=== PATIENT | female | born 1950 | race Caucasian/White ===

== ENCOUNTER 2016-12-28 18:43 | Inpatient (IN) | payer MEDICARE, OTHER ==
[~2016-12-28] VITALS: Ht 157.5 cm; Wt 75.8 kg
[~2016-12-28 18:43] MED LIST: BISO1TAB44 PO; CALC500T30 PO; ENAL5TAB PO; LINA5TAB4 PO; METF500T4 PO; MULT-245 PO; NIAC500T PO; OMEG500C PO; SIMV10TA3 PO; TRADJENTA; TRIA15CR3 TP; enalapril; hydrochlorothiazide; metformin; niacin; simvastatin
--- NOTE | 2016-12-28 19:02 | PHYS DOC ---
Past Medical History Past Medical History: Diabetes-Type II, Hypertension, Unknown Past Surgical History: Tubal ligation, Other Alcohol Use: None Drug Use: None Adult General Chief Complaint Chief Complaint: NEAR SYNCOPE HPI HPI Patient is a 66 year old female who presents with generalized weakness and a fever. She states she actually fell at home and couldn't get up and had EMS come in get her up. She states she's had a cough for the last several days but denies any fevers chills nausea or vomiting. She denies any injury from her fall she denies a headache, neck stiffness, abdominal pain or back pain. Review of Systems Review of Systems Constitutional: Denies fever or chills [] Eyes: Denies change in visual acuity, redness, or eye pain [] HENT: Denies nasal congestion or sore throat [] Respiratory: Denies cough or shortness of breath [] Cardiovascular: No additional information not addressed in HPI [] GI: Denies abdominal pain, nausea, vomiting, bloody stools or diarrhea [] : Denies dysuria or hematuria [] Musculoskeletal: Denies back pain or joint pain [] Integument: Denies rash or skin lesions [] Neurologic: Denies headache, focal weakness or sensory changes [] Endocrine: Denies polyuria or polydipsia [] Current Medications Current Medications Current Medications Medications (Trade) Dose Ordered Sig/Zoë Start Time Stop Time Status Last Admin Dose Admin Acetaminophen (Tylenol) 1,000 mg 1X ONCE 12/28/16 20:30 12/28/16 20:31 DC 12/28/16 21:02 1,000 MG Azithromycin 250 ml @ 250 mls/hr 1X ONCE 12/28/16 21:30 12/28/16 22:29 Ceftriaxone Sodium 50 ml @ 100 mls/hr 1X ONCE 12/28/16 21:30 12/28/16 21:59 12/28/16 21:21 100 MLS/HR Ondansetron HCl (Zofran) 4 mg PRN Q8HRS PRN 12/28/16 21:30 12/29/16 21:29 Sodium Chloride 1,000 ml @ 1,000 mls/hr 1X ONCE 12/28/16 21:15 12/28/16 22:14 Allergies Allergies Allergies Coded Allergies Type Severity Reaction Last Updated Verified No Known Drug Allergies 02/16/16 No Physical Exam Physical Exam Constitutional: Well developed, well nourished, no acute distress, non-toxic appearance. [] HENT: Normocephalic, atraumatic, bilateral external ears normal, oropharynx moist, no oral exudates, nose normal. [] Eyes: PERRLA, EOMI, conjunctiva normal, no discharge. [] Neck: Normal range of motion, no tenderness, supple, no stridor. [] Cardiovascular:Heart rate regular rhythm, no murmur [] Lungs & Thorax: Bilateral breath sounds clear to auscultation [] Abdomen: Bowel sounds normal, soft, no tenderness, no masses, no pulsatile masses. [] Skin: Warm, dry, no erythema, no rash. [] Back: No tenderness, no CVA tenderness. [] Extremities: No tenderness, no cyanosis, no clubbing, ROM intact, no edema. [] Neurologic: Alert and oriented X 3, normal motor function, normal sensory function, no focal deficits noted. [] Psychologic: Affect normal, judgement normal, mood normal. [] Current Patient Data Vital Signs Vital Signs Date Time Temp Pulse Resp B/P (MAP) Pulse Ox O2 Delivery O2 Flow Rate FiO2 12/28/16 20:55 100.1 106 20 125/70 (88) 94 Nasal Cannula 2.0 100.1 Lab Values Laboratory Tests Test 12/28/16 19:05 12/28/16 19:07 12/28/16 19:38 12/28/16 20:50 White Blood Count 13.0 x10^3/uL (4.0-11.0) H Red Blood Count 4.99 x10^6/uL (3.50-5.40) Hemoglobin 14.4 g/dL (12.0-15.5) Hematocrit 43.6 % (36.0-47.0) Mean Corpuscular Volume 87 fL (79-100) Mean Corpuscular Hemoglobin 29 pg (25-35) Mean Corpuscular Hemoglobin Concent 33 g/dL (31-37) Red Cell Distribution Width 14.3 % (11.5-14.5) Platelet Count 215 x10^3/uL (140-400) Neutrophils (%) (Auto) 81 % (31-73) H Lymphocytes (%) (Auto) 11 % (24-48) L Monocytes (%) (Auto) 7 % (0-9) Eosinophils (%) (Auto) 0 % (0-3) Basophils (%) (Auto) 1 % (0-3) Neutrophils # (Auto) 10.6 x10^3uL (1.8-7.7) H Lymphocytes # (Auto) 1.4 x10^3/uL (1.0-4.8) Monocytes # (Auto) 0.9 x10^3/uL (0.0-1.1) Eosinophils # (Auto) 0.0 x10^3/uL (0.0-0.7) Basophils # (Auto) 0.1 x10^3/uL (0.0-0.2) Prothrombin Time 13.7 SEC (11.7-14.0) Prothrombin Time INR 1.1 (0.8-1.1) PTT 31 SEC (24-38) Sodium Level 135 mmol/L (136-145) L Potassium Level 3.8 mmol/L (3.5-5.1) Chloride Level 98 mmol/L (98-107) Carbon Dioxide Level 24 mmol/L (21-32) Anion Gap 13 (6-14) Blood Urea Nitrogen 10 mg/dL (7-20) Creatinine 1.0 mg/dL (0.6-1.0) Estimated GFR (Cockcroft-Gault) 55.6 Glucose Level 189 mg/dL (70-99) H Lactic Acid Level 2.6 mmol/L (0.4-2.0) H Calcium Level 9.7 mg/dL (8.5-10.1) Total Bilirubin 0.6 mg/dL (0.2-1.0) Direct Bilirubin 0.1 mg/dL (0.0-0.2) Aspartate Amino Transferase (AST) 27 U/L (15-37) Alanine Aminotransferase (ALT) 45 U/L (14-59) Alkaline Phosphatase 70 U/L (46-116) Total Protein 8.2 g/dL (6.4-8.2) Albumin 3.9 g/dL (3.4-5.0) Creatine Kinase 67 U/L (26-192) Creatine Kinase MB (Mass) < 0.5 ng/mL (0.0-3.6) Creatine Kinase MB Relative Index % (0-4) Troponin I Quantitative < 0.017 ng/mL (0.000-0.055) Influenza Type A Antigen Negative (NEGATIVE) Influenza Type B Antigen Negative (NEGATIVE) Urine Collection Type U cath Urine Color Yellow Urine Clarity Clear Urine pH 6.0 Urine Specific [place] 1.025 Urine Protein Negative mg/dL (NEG-TRACE) Urine Glucose (UA) Negative mg/dL (NEG) Urine Ketones (Stick) >=80 mg/dL (NEG) Urine Blood Negative (NEG) Urine Nitrite Negative (NEG) Urine Bilirubin Negative (NEG) Urine Urobilinogen Dipstick 0.2 mg/dL (0.2 mg/dL) Urine Leukocyte Esterase Negative (NEG) Urine RBC 0 /HPF (0-2) Urine WBC Occ /HPF (0-4) Urine Squamous Epithelial Cells Few /LPF Urine Bacteria Few /HPF (0-FEW) Urine Hyaline Casts Moderate /HPF Urine Mucus Mod /LPF Laboratory Tests 12/28/16 19:05 Laboratory Tests 12/28/16 19:05 EKG EKG EKG shows sinus tachycardia [address] elevations, T-wave inversions noted in V1 through V3, aVL, ST depressions noted in leads V2 V3 V4, normal axis, QTC 426, as interpreted by me. Radiology/Procedures Radiology/Procedures Two-view chest x-ray does not show any areas of consolidation, bony or denies, pneumothorax, as interpreted by me. Impressions: Fever Elevated lactic acid Productive cough Course & Med Decision Making Course & Med Decision Making Pertinent Labs and Imaging studies reviewed. (See chart for details) She presents with fever 102 she received Tylenol is now down to more normal rate. Her heart rate was also elevated, she received 1 L of second liters been ordered. She is requiring 2 L of oxygen now. She does have a productive cough and I don't have any other source of infection therefore will start Rocephin and azithromycin and admit. There is a chance that she is dehydrated since she has greater than 80 ketones in her chest x-ray might show an infiltrate tomorrow. Patient is agreeable plans in stable condition this time being admitted to Dr.Koduri Chavez Disclaimer Kathy Disclaimer This electronic medical record was generated, in whole or in part, using a voice recognition dictation system. Departure Departure Impression: Primary Impression: Fever Disposition: ADMITTED INPATIENT Admitting Physician: Lee Lara Condition: STABLE Referrals: FARRAH BENITO (PCP) Problem Qualifiers Primary Impression: Fever Fever type: unspecified Qualified Codes: R50.9 - Fever, unspecified ELI HOLLINGSWORTH MD Dec 28, 2016 19:02
[2016-12-28] MEDS ORDERED: IV NORMAL SALINE 1000ML BAG 1,000 ML IV SCH (19:30)
[2016-12-28 19:42] LABS: BASO # 0.1 x10^3/uL (0.0-0.2); BASO % 1 % (0-3); EOS % 0 % (0-3); HEMATOCRIT 43.6 % (36.0-47.0); HEMOGLOBIN 14.4 g/dL (12.0-15.5); LYMPH # 1.4 x10^3/uL (1.0-4.8); LYMPH % 11 % (24-48); MEAN CORPUSCULAR HEMOGLOBIN 29 pg (25-35); MEAN CORPUSCULAR HGB CONC 33 g/dL (31-37); MEAN CORPUSCULAR VOLUME 87 fL (79-100); MONO % 7 % (0-9); NEUT % 81 % (31-73); PLATELET COUNT 215 x10^3/uL (140-400); RED BLOOD COUNT 4.99 x10^6/uL (3.50-5.40); RED CELL DISTRIBUTION WIDTH 14.3 % (11.5-14.5)
[2016-12-28 19:51] LABS: INR 1.1 (0.8-1.1); PROTHROMBIN TIME PATIENT 13.7 SEC (11.7-14.0)
[2016-12-28 19:59] LABS: CALCIUM 9.7 mg/dL (8.5-10.1); GFR 55.6; POTASSIUM 3.8 mmol/L (3.5-5.1)
[2016-12-28 20:04] LABS: ALBUMIN 3.9 g/dL (3.4-5.0); DIRECT BILIRUBIN 0.1 mg/dL (0.0-0.2); TOTAL BILIRUBIN 0.6 mg/dL (0.2-1.0); TOTAL PROTEIN 8.2 g/dL (6.4-8.2)
[2016-12-28] MEDS ORDERED: IV NORMAL SALINE 1000ML BAG 1,000 ML IV ONE ×2 (20:15→21:15)
[2016-12-28 20:22] LABS: OBC FLU VALID
[2016-12-28] MEDS ORDERED: ACETAMINOPHEN 500 MG TABLET PO ONE (20:30)
[2016-12-28 21:01] LABS: CKMB MASS < 0.5 ng/mL (0.0-3.6); CREATINE KINASE 67 U/L (26-192)
[2016-12-28 21:04] LABS: BILIRUBIN,URINE NEGATIVE (NEG); GLUCOSE,URINE NEGATIVE (NEG); NITRITE,URINE NEGATIVE (NEG); PROTEIN,URINE NEGATIVE (NEG-TRACE); UROBILINOGEN,URINE 0.2 mg/dL (0.2 mg/dL)
[2016-12-28 21:12] LABS: BACTERIA,URINE FEW /HPF (0-FEW); RBC,URINE 0 /HPF (0-2); SQUAMOUS EPITHELIAL CELL,UR FEW /LPF; WBC,URINE OCC /HPF (0-4)
[2016-12-28] MEDS ORDERED: AZITHRMYCN 500MG IVPB FOR OMNI 250 ML IV ONE (21:30)
[2016-12-28] MEDS ORDERED: ONDANSETRON PF 4 MG/2 ML VIAL. IV PRN (21:30)
[2016-12-28 23:40] VITALS: BP 148/68
[2016-12-29] MEDS: guaiFENesin/CODEINE 100mg/10mg 5 ML LIQUID PO PRN ×3 (00:51→20:52)
[2016-12-29 02:50] VITALS: BP 104/52
[2016-12-29 03:43] LABS: BASO % 1 % (0-3); EOS % 0 % (0-3); HEMATOCRIT 37.1 % (36.0-47.0); HEMOGLOBIN 12.3 g/dL (12.0-15.5); LYMPH # 2.1 x10^3/uL (1.0-4.8); LYMPH % 22 % (24-48); MEAN CORPUSCULAR HEMOGLOBIN 29 pg (25-35); MEAN CORPUSCULAR HGB CONC 33 g/dL (31-37); MEAN CORPUSCULAR VOLUME 87 fL (79-100); MONO % 9 % (0-9); NEUT % 69 % (31-73); PLATELET COUNT 179 x10^3/uL (140-400); RED BLOOD COUNT 4.25 x10^6/uL (3.50-5.40); RED CELL DISTRIBUTION WIDTH 14.2 % (11.5-14.5); WHITE BLOOD COUNT 9.4 x10^3/uL (4.0-11.0)
[2016-12-29 04:09] LABS: ALBUMIN 3.1 g/dL (3.4-5.0); CALCIUM 8.2 mg/dL (8.5-10.1); CREATININE 0.8 mg/dL (0.6-1.0); POTASSIUM 3.8 mmol/L (3.5-5.1); TOTAL BILIRUBIN 0.3 mg/dL (0.2-1.0); TOTAL PROTEIN 6.3 g/dL (6.4-8.2)
--- NOTE | 2016-12-29 06:31 | EKG ---
[facility] [address] [place] [address] Test Date: 2016-12-28 Test Time: 18:44:00 Pat Name: MEERA LONDONO Department: Room: [facility] Gender: F Negative Retoucher: : 1950 Requested By: ELI HOLLINGSWORTH Order Number: [id number] Reading MD: Demetrius Nascimento Measurements Intervals Ridge Rate: 102 P: 18 PA: 154 QRS: 15 QRSD: 76 T: 51 QT: 324 QTc: 426 Interpretive Statements SINUS TACHYCARDIA LOW LIMB LEAD VOLTAGE NON SPECIFIC T ABNORMALITY NON SPECIFIC ST DEPRESSION RI6.01 Unconfirmed report No previous ECG available for comparison Electronically Signed On 01-07-2017 12:46:34 CDT by Demetrius Nascimento
[2016-12-29 07:00] VITALS: BP 137/74
--- NOTE | 2016-12-29 08:36 | RAD ---
EXAM: Chest, single view. HISTORY: Fever. COMPARISON: None. FINDINGS: A frontal view of the chest is obtained. There is no infiltrate, effusion or pneumothorax. The heart is normal in size. IMPRESSION: No acute pulmonary finding.
[2016-12-29] MEDS ORDERED: DEXTROSE 50% 25 GM / 50ML DISP.SYRIN. IV PRN (08:45)
[2016-12-29] MEDS: TRIAMCINOLONE ACETONIDE 0.1% TOPICAL CREAM 15GM TUBE. TP SCH (09:00)
[2016-12-29] MEDS ORDERED: LINAGLIPTIN 5 MG TABLET PO SCH (09:00)
--- NOTE | 2016-12-29 10:06 | PDOC ---
Provider Note Provider Note Pt seen.H&P dictated. ##[id number] FORTUNATO OH MD Dec 29, 2016 10:06
[2016-12-29] MEDS ORDERED: ASPI325T8 PO (10:14)
[2016-12-29] MEDS: MULTIVITAMIN with MINERAL TABLET. PO SCH (10:22)
[2016-12-29] MEDS: CALCIUM CARBONATE 500 MG TABLET PO SCH (10:22)
[2016-12-29] MEDS: OMEGA-3 FATTY ACIDS/FISH OIL 1,000 MG CAPSULE. PO SCH (10:23)
[2016-12-29] MEDS: metFORMIN 500 MG TABLET PO SCH ×2 (10:23→17:10)
[2016-12-29] MEDS: hydroCHLOROthiazide 25 MG TABLET PO SCH (10:23)
[2016-12-29] MEDS: ATENOLOL 50 MG TABLET. PO SCH (10:25)
[2016-12-29] MEDS: LISINOPRIL 5 MG TABLET. PO SCH (10:25)
[2016-12-29] MEDS: ENOXAPARIN 40 MG/0.4 ML SYRINGE. SQ SCH (10:34)
[2016-12-29 11:00] VITALS: BP 129/65
[2016-12-29] MEDS: guaiFENesin DM 600/30MG 1 TAB TAB.ER.12H PO SCH ×2 (11:01→20:54)
[2016-12-29] MEDS: INSULIN ASPART 300 UNITS/3 ML INSULN.PEN SQ SCH ×2 (11:40→17:00)
[2016-12-29] MEDS ORDERED: ACETAMINOPHEN 500 MG TABLET PO PRN (12:15)
[2016-12-29] MEDS: BENZONATATE 100 MG CAPSULE. PO SCH ×2 (13:35→20:52)
--- NOTE | 2016-12-29 14:18 | HP ---
ADMIT DATE: 12/29/2016 ATTENDING PHYSICIAN: Dr. Oh. PRIMARY CARE PHYSICIAN: Dr. Peralta. REASON FOR ADMISSION TO THE HOSPITAL: Weakness, fever and fell at home. HISTORY OF PRESENT ILLNESS: The patient is a 66-year-old female, patient of Dr. Peralta. She has a history of intellectually impaired. She is in a alf and says she has been having cough and not feeling well. She has fever and she was feeling dizzy, lightheaded and fell yesterday at the facility. Was brought to the hospital. She had a fever of 101, white count 13,000 and chest x-ray was negative, was treated with antibiotics. Influenza A and B was negative. PAST MEDICAL HISTORY: She is a diabetic. She takes metformin. Denies heart problems or lung problems. PAST SURGICAL HISTORY: She denies any major surgeries. ALLERGIES: No known allergies. MEDICATIONS AT HOME: Takes Ziac 2.5/6.25 daily, calcium twice a day, enalapril 5 mg daily, metformin 500 mg twice a day, vitamin daily, niacin 500 mg daily, omega fish oil daily, simvastatin daily, triamcinolone cream daily. FAMILY HISTORY: Unremarkable. SOCIAL HISTORY: She lives in a alf. REVIEW OF SYSTEMS: CARDIAC: No chest pain. LUNGS: Has some occasional wheezing and fever. Rest of the 14 systems was reviewed and negative. PHYSICAL EXAMINATION: VITAL SIGNS: The patient has fever of 102.7, pulse 113, respirations 20, blood pressure 167/68, 94% room air. HEENT: Head is atraumatic. Pupils equal. Has congestion in the nose as well as posterior pharynx. LUNGS: Occasional wheezing. CARDIOVASCULAR: S1, S2. ABDOMEN: Soft. No mass palpable. EXTERNAL GENITALIA: No Alas. RECTAL: Deferred. EXTREMITIES: No calf tenderness, no edema. LABORATORY DATA: Shows a white count of 13,000, hemoglobin 14, platelets 215. Electrolytes show sodium 140, potassium 3.8, chloride 105, bicarbonate 29, BUN 24, creatinine 0.8. Lactic acid was a little bit high at 2.6. LFTs were normal. Troponin was negative. Urine was negative for infection. Influenza A and B was negative. Chest x-ray, no acute findings and EKG done, report is not available. FINAL IMPRESSION: 1. Fever. 2. Possible acute bacterial sinusitis. 3. Diabetes. 4. Hypertension. 5. Hyperlipidemia. PLAN: At this time, was admitted to the hospital, IV antibiotics, IV fluids and the patient's white count is down, feeling better, will be able to be discharged in 1-2 days. [place] OH MD DR: KIRSTEN/junior JOB#: [id number] / [id number] FARRAH Cheema
--- NOTE | 2016-12-29 15:05 | RAD ---
EXAM: Paranasal sinuses, 4 views. HISTORY: Congestion. COMPARISON: None. FINDINGS: 4 views of the paranasal sinuses are obtained. There is mild relative decreased right maxillary sinus size with sinus wall thickening. The frontal sinuses are not pneumatized. There is no nasal septal deviation. 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 There is superimposed right maxillary sinus mucosal thickening.
[2016-12-29 19:00] VITALS: BP 100/61
[2016-12-29] MEDS: AZITHROMYCIN 500 MG in IV NORMAL SALINE 250ML 250 ML IV SCH (20:51)
[2016-12-29] MEDS: NIACIN ER 500 MG TABLET.ER PO SCH (20:52)
[2016-12-29] MEDS: SIMVASTATIN 10 MG TABLET PO SCH (20:52)
[2016-12-29 23:00] VITALS: BP 107/61
[2016-12-30 03:00] VITALS: BP 123/76
[2016-12-30 03:54] LABS: BASO % 1 % (0-3); EOS % 1 % (0-3); HEMATOCRIT 37.7 % (36.0-47.0); HEMOGLOBIN 12.3 g/dL (12.0-15.5); LYMPH # 2.8 x10^3/uL (1.0-4.8); LYMPH % 34 % (24-48); MEAN CORPUSCULAR HEMOGLOBIN 29 pg (25-35); MEAN CORPUSCULAR HGB CONC 33 g/dL (31-37); MEAN CORPUSCULAR VOLUME 88 fL (79-100); MONO % 12 % (0-9); NEUT % 54 % (31-73); PLATELET COUNT 178 x10^3/uL (140-400); RED BLOOD COUNT 4.28 x10^6/uL (3.50-5.40); RED CELL DISTRIBUTION WIDTH 14.1 % (11.5-14.5); WHITE BLOOD COUNT 8.5 x10^3/uL (4.0-11.0)
[2016-12-30 04:38] LABS: CALCIUM 8.8 mg/dL (8.5-10.1); CREATININE 0.8 mg/dL (0.6-1.0); POTASSIUM 3.6 mmol/L (3.5-5.1)
[2016-12-30 04:39] LABS: CHOLESTEROL/HDL RATIO 2.5
[2016-12-30 07:00] VITALS: BP 162/72
[2016-12-30] MEDS: metFORMIN 500 MG TABLET PO SCH ×2 (07:51→17:16)
[2016-12-30] MEDS: INSULIN ASPART 300 UNITS/3 ML INSULN.PEN SQ SCH ×3 (07:52→17:00)
[2016-12-30] MEDS: guaiFENesin DM 600/30MG 1 TAB TAB.ER.12H PO SCH ×2 (08:37→20:26)
[2016-12-30] MEDS: CALCIUM CARBONATE 500 MG TABLET PO SCH (08:37)
[2016-12-30] MEDS: OMEGA-3 FATTY ACIDS/FISH OIL 1,000 MG CAPSULE. PO SCH (08:38)
[2016-12-30] MEDS: LISINOPRIL 5 MG TABLET. PO SCH (08:38)
[2016-12-30] MEDS: ATENOLOL 50 MG TABLET. PO SCH (08:38)
[2016-12-30] MEDS: hydroCHLOROthiazide 25 MG TABLET PO SCH (08:38)
[2016-12-30] MEDS: BENZONATATE 100 MG CAPSULE. PO SCH ×3 (08:38→20:23)
[2016-12-30] MEDS: MULTIVITAMIN with MINERAL TABLET. PO SCH (08:39)
[2016-12-30] MEDS: TRIAMCINOLONE ACETONIDE 0.1% TOPICAL CREAM 15GM TUBE. TP SCH (08:39)
[2016-12-30] MEDS: ENOXAPARIN 40 MG/0.4 ML SYRINGE. SQ SCH (08:39)
--- NOTE | 2016-12-30 10:14 | PDOC ---
PROGRESS NOTES Subjective Subjective feels better ,had fever 101 yesterday Objective Objective Vital Signs Date Time Temp Pulse Resp B/P (MAP) Pulse Ox O2 Delivery O2 Flow Rate FiO2 12/30/16 08:38 75 162/72 12/30/16 07:30 Nasal Cannula 2.0 12/30/16 07:00 97.9 18 92 97.9 Physical Exam Abdomen: Normal bowel sounds, Soft Heart: Regular rate, Normal S1, Normal S2 Extremities: No clubbing General: Alert HEENT: Atraumatic Lungs: Clear to auscultation MUSCULOSKELETAL: No deformity Neck: Supple Neuro: Normal speech Psych/Mental Status: Mental status NL Skin: No breakdown Diagnosis Problem List Problems Medical Problems: (1) Fever Status: Acute Assessment Assessment Problems Medical Problems: (1) Fever Status: Acute FINAL IMPRESSION: 1. Fever due to Acute bacterial sinusitis. 2. Impaired mentally. 3. Diabetes. 4. Hypertension. 5. Hyperlipidemia. PLAN: x ray sinus consistent with sinusitis . iv antibiotics . home tomorrow. PT/OT. At this time, was admitted to the hospital, IV antibiotics, IV fluids and the patient's white count is down, feeling better, will be able to be discharged in 1-2 days. Problems: Plan Plan of Care Problems Medical Problems: (1) Fever Status: Acute Comment Review of Relevant I have reviewed the following items pietro (where applicable) has been applied. Labs Laboratory Tests Test 12/29/16 11:00 12/29/16 11:04 12/29/16 16:35 12/29/16 21:18 Lactic Acid Level 1.6 mmol/L (0.4-2.0) Glucose (Fingerstick) 127 mg/dL (70-99) 123 mg/dL (70-99) 97 mg/dL (70-99) Test 12/30/16 03:43 12/30/16 07:52 White Blood Count 8.5 x10^3/uL (4.0-11.0) Red Blood Count 4.28 x10^6/uL (3.50-5.40) Hemoglobin 12.3 g/dL (12.0-15.5) Hematocrit 37.7 % (36.0-47.0) Mean Corpuscular Volume 88 fL (79-100) Mean Corpuscular Hemoglobin 29 pg (25-35) Mean Corpuscular Hemoglobin Concent 33 g/dL (31-37) Red Cell Distribution Width 14.1 % (11.5-14.5) Platelet Count 178 x10^3/uL (140-400) Neutrophils (%) (Auto) 54 % (31-73) Lymphocytes (%) (Auto) 34 % (24-48) Monocytes (%) (Auto) 12 % (0-9) Eosinophils (%) (Auto) 1 % (0-3) Basophils (%) (Auto) 1 % (0-3) Neutrophils # (Auto) 4.5 x10^3uL (1.8-7.7) Lymphocytes # (Auto) 2.8 x10^3/uL (1.0-4.8) Monocytes # (Auto) 1.0 x10^3/uL (0.0-1.1) Eosinophils # (Auto) 0.1 x10^3/uL (0.0-0.7) Basophils # (Auto) 0.0 x10^3/uL (0.0-0.2) Sodium Level 144 mmol/L (136-145) Potassium Level 3.6 mmol/L (3.5-5.1) Chloride Level 107 mmol/L (98-107) Carbon Dioxide Level 31 mmol/L (21-32) Anion Gap 6 (6-14) Blood Urea Nitrogen 8 mg/dL (7-20) Creatinine 0.8 mg/dL (0.6-1.0) Estimated GFR (Cockcroft-Gault) 72.0 Glucose Level 111 mg/dL (70-99) Lactic Acid Level 0.9 mmol/L (0.4-2.0) Calcium Level 8.8 mg/dL (8.5-10.1) Triglycerides Level 92 mg/dL (0-150) Cholesterol Level 125 mg/dL (0-200) LDL Cholesterol, Calculated 56 mg/dL (0-100) VLDL Cholesterol, Calculated 18 mg/dL (0-40) Non-HDL Cholesterol Calculated 74 mg/dL (0-129) HDL Cholesterol 51 mg/dL (40-60) Cholesterol/HDL Ratio 2.5 Thyroid Stimulating Hormone (TSH) 1.760 uIU/mL (0.358-3.74) Glucose (Fingerstick) 92 mg/dL (70-99) Microbiology 12/28/16 Blood Culture - Preliminary, Resulted NO GROWTH AFTER 1 DAY Medications Current Medications Acetaminophen (Tylenol) 500 mg PRN Q6HRS PRN PO MILD PAIN / TEMP Last administered on 12/29/16 12:35; Start 12/29/16 at 12:15 Azithromycin 500 mg/Sodium Chloride 250 ml @ 250 mls/hr Q24H IV Last administered on 12/29/16 20:51; Start 12/29/16 at 20:00 Benzonatate (Tessalon Perle) 100 mg [id number] PO Last administered on 12/30/16 08 :38; Start 12/29/16 at 14:00 Ceftriaxone Sodium 1 gm/ Sodium Chloride 50 ml @ 100 mls/hr Q24H IV Last administered on 12/29/16 17:43; Start 12/29/16 at 18:00 Guaifenesin (MUCINEX ER with DM) 1 tab BID PO Last administered on 12/30/16 08 :37; Start 12/29/16 at 11:00 Insulin Aspart (NovoLOG) 0-7 UNITS TIDWMEALS SQ ; Start 12/29/16 at 12:00 Niacin (Slo-Niacin) 500 mg HS PO Last administered on 12/29/16 20:52; Start at 21:00 Simvastatin (Zocor) 10 mg HS PO Last administered on 12/29/16 20:52; Start at 21:00 Vitals/I & O Vital Sign - Last 24 Hours 12/29/16 12/29/16 12/29/16 12/29/16 10:25 10:25 11:00 11:33 Temp 102.0 102.0 Pulse 92 94 90 Resp 20 B/P (MAP) 154/70 154/70 129/65 (86) Pulse Ox 93 O2 Delivery Nasal Cannula Nasal Cannula O2 Flow Rate 2.0 2.0 12/29/16 12/29/16 12/29/16 12/30/16 19:00 19:52 23:00 03:00 Temp 98.3 98.7 98.3 98.3 98.7 98.3 Pulse 74 74 83 Resp 20 20 20 B/P (MAP) 100/61 (74) 107/61 (76) 123/76 (92) Pulse Ox 93 94 93 O2 Delivery Nasal Cannula Nasal Cannula Nasal Cannula Nasal Cannula O2 Flow Rate 2.0 2.0 2.0 2.0 12/30/16 12/30/16 12/30/16 12/30/16 07:00 07:30 08:38 08:38 Temp 97.9 97.9 Pulse 75 75 75 Resp 18 B/P (MAP) 162/72 (102) 162/72 162/72 Pulse Ox 92 O2 Delivery Nasal Cannula Nasal Cannula O2 Flow Rate 2.0 2.0 FORTUNATO OH MD Dec 30, 2016 10:14
[2016-12-30 10:36] VITALS: BP 126/76
[2016-12-30] MEDS: guaiFENesin/CODEINE 100mg/10mg 5 ML LIQUID PO PRN ×2 (14:32→20:23)
[2016-12-30 15:00] VITALS: BP 137/77
[2016-12-30 19:00] VITALS: BP 116/65
[2016-12-30] MEDS: NIACIN ER 500 MG TABLET.ER PO SCH (20:23)
[2016-12-30] MEDS: AZITHROMYCIN 500 MG in IV NORMAL SALINE 250ML 250 ML IV SCH (20:24)
[2016-12-30] MEDS: SIMVASTATIN 10 MG TABLET PO SCH (20:26)
[2016-12-30 23:00] VITALS: BP 117/67
[2016-12-31 03:06] VITALS: BP 145/76
[2016-12-31 07:00] VITALS: BP 145/82
[2016-12-31] MEDS: INSULIN ASPART 300 UNITS/3 ML INSULN.PEN SQ SCH (07:42)
[2016-12-31] MEDS: metFORMIN 500 MG TABLET PO SCH (07:44)
[2016-12-31] MEDS: ENOXAPARIN 40 MG/0.4 ML SYRINGE. SQ SCH (09:00)
[2016-12-31] MEDS: TRIAMCINOLONE ACETONIDE 0.1% TOPICAL CREAM 15GM TUBE. TP SCH (09:00)
[2016-12-31] MEDS: guaiFENesin DM 600/30MG 1 TAB TAB.ER.12H PO SCH (09:16)
[2016-12-31] MEDS: ATENOLOL 50 MG TABLET. PO SCH (09:17)
[2016-12-31] MEDS: hydroCHLOROthiazide 25 MG TABLET PO SCH (09:17)
[2016-12-31] MEDS: OMEGA-3 FATTY ACIDS/FISH OIL 1,000 MG CAPSULE. PO SCH (09:17)
[2016-12-31] MEDS: CALCIUM CARBONATE 500 MG TABLET PO SCH (09:17)
[2016-12-31 09:18] VITALS: BP 145/82
[2016-12-31] MEDS: BENZONATATE 100 MG CAPSULE. PO SCH (09:18)
[2016-12-31] MEDS: MULTIVITAMIN with MINERAL TABLET. PO SCH (09:18)
[2016-12-31] MEDS: LISINOPRIL 5 MG TABLET. PO SCH (09:18)
--- NOTE | 2016-12-31 09:46 | PDOC ---
PROGRESS NOTES Subjective Subjective no fever,wanting to go home Objective Objective Vital Signs Date Time Temp Pulse Resp B/P (MAP) Pulse Ox O2 Delivery O2 Flow Rate FiO2 12/31/16 09:18 73 145/82 12/31/16 03:06 98.7 20 93 Room Air 98.7 12/30/16 07:30 2.0 Physical Exam Abdomen: Normal bowel sounds, Soft Heart: Regular rate, Normal S1, Normal S2 Extremities: No clubbing General: Alert HEENT: Atraumatic Lungs: Clear to auscultation MUSCULOSKELETAL: No deformity Neck: Supple Neuro: Normal speech Psych/Mental Status: Mental status NL Skin: No breakdown Diagnosis Problem List Problems Medical Problems: (1) Fever Status: Acute Assessment Assessment Problems Medical Problems: (1) Fever Status: Acute FINAL IMPRESSION: 1. Fever due to Acute bacterial sinusitis. 2. Impaired mentally. 3. Diabetes. 4. Hypertension. 5. Hyperlipidemia. PLAN: discharge today x ray sinus consistent with sinusitis . po antibiotics . home today. PT/OT. Problems: Plan Plan of Care Problems Medical Problems: (1) Fever Status: Acute Comment Review of Relevant I have reviewed the following items pietro (where applicable) has been applied. Labs Laboratory Tests Test 12/30/16 11:18 12/30/16 17:12 12/30/16 20:17 12/31/16 07:23 Glucose (Fingerstick) 89 mg/dL (70-99) 113 mg/dL (70-99) 169 mg/dL (70-99) 99 mg/dL (70-99) Microbiology 12/29/16 Blood Culture - Preliminary, Resulted NO GROWTH AFTER 1 DAY Vitals/I & O Vital Sign - Last 24 Hours 12/30/16 12/30/16 12/30/16 12/30/16 10:36 15:00 19:00 20:00 Temp 97.9 98.6 98.9 97.9 98.6 98.9 Pulse 63 70 76 Resp 18 18 20 B/P (MAP) 126/76 (93) 137/77 (97) 116/65 (82) Pulse Ox 94 97 96 O2 Delivery Room Air Room Air Room Air Room Air 12/30/16 12/31/16 12/31/16 12/31/16 23:00 03:06 09:17 09:18 Temp 98.3 98.7 98.3 98.7 Pulse 66 79 73 73 Resp 20 20 B/P (MAP) 117/67 (84) 145/76 (99) 145/82 145/82 Pulse Ox 98 93 O2 Delivery Room Air Room Air FORTUNATO OH MD Dec 31, 2016 09:46
[2016-12-31] MEDS ORDERED: AMOX1TAB58 PO (09:48)
--- NOTE | 2017-01-01 22:48 | PDOC ---
Provider Note Provider Note Discharge summary dictated. #[id number] FORTUNATO OH MD Jan 01, 2017 22:47
--- NOTE | 2017-01-01 23:19 | DS ---
DATE OF DISCHARGE: 12/31/2016 REASON FOR ADMISSION TO THE HOSPITAL: Fever, acute bacterial sinusitis. PROCEDURES DONE: None. COMPLICATIONS NOTED: None. HOSPITAL COURSE: The patient is a 66-year-old female, is intellectually impaired. She has a fever, cough, 92 temperature, came to the Emergency Room, was put on broad-spectrum antibiotic. She does have symptoms of acute bacterial sinusitis. Chest x-ray was negative. X-ray of sinus consistent with again sinusitis. The patient's fever improved after 3 days in the hospital. White count was down and she was discharged on Augmentin for 7 more days for acute bacterial sinusitis. FINAL DIAGNOSES: 1. Fever secondary to acute bacterial sinusitis. 2. Diabetes. 3. Hypertension. 4. Hyperlipidemia. 5. Intellectual impaired. DISPOSITION: Home. [place] OH MD DR: KIRSTEN/junior JOB#: [id number] / [id number] FARRAH Cheema
== END 2016-12-31 11:37 | disposition home or self-care (01) | DRG 153 ==
LOC: ER 18:43 → 2 SOUTH 21:14 → 5 NORTH 12-29 11:16
PROVIDERS: ADMIT Internal Medicine; ATTEND Internal Medicine
DX: J01.90 Acute sinusitis, unspecified (principal); I10 Essential (primary) hypertension; B96.89 Other specified bacterial agents as the cause of diseases classified elsewhere; E11.9 Type 2 diabetes mellitus without complications; E78.5 Hyperlipidemia, unspecified; Z98.51 Tubal ligation status; G31.84 Mild cognitive impairment of uncertain or unknown etiology
CPT/HCPCS: 36415; 51701; 70220; 71010; 80048; 80053; 80061; 80076; 81001; 82553; 82962; 83036; 83605; 83880; 84443; 84484; 85025; 85610; 85730; 87040; 87804; 93005; 96365; 96366; J0456; J0690; J0696; J1650; J1815; J7030; J7050; 97110; 97116; 99285-25

== ENCOUNTER → 2017-03-01 | Outpatient (CLI) | payer MEDICARE, OTHER ==
[~2017-03-01] MED LIST changes: +AMOX1TAB58 PO; +ASPI325T8 PO
--- NOTE | 2017-03-01 12:45 | RAD ---
DATE: 03/01/2017 EXAM: DIGITAL SCREEN BILAT W/CAD HISTORY: Routine screening COMPARISON: 01/19/2016 This study was interpreted with the benefit of Computerized Aided Detection (CAD). The breast parenchyma shows scattered fibroglandular densities. Breast parenchyma level B. FINDINGS: No new or enlarging breast densities are seen. Minimal benign type calcification is present. No suspicious microcalcifications have developed. IMPRESSION: Stable mammograms without evidence of malignancy. BI-RADS CATEGORY: 2 BENIGN FINDING(S) RECOMMENDED FOLLOW-UP: 12M 12 MONTH FOLLOW-UP PQRS compliance statement: Patient information was entered into a reminder system with a target due date for the next mammogram. Mammography is a sensitive method for finding small breast cancers, but it does not detect them all and is not a substitute for careful clinical examination. A negative mammogram does not negate a clinically suspicious finding and should not result in delay in biopsying a clinically suspicious abnormality. "Our facility is accredited by the [employer] Mammography Program."
== END | disposition home or self-care (01) ==
LOC: MAMMO 11:52
PROVIDERS: ATTEND Family Medicine
DX: Z12.31 Encounter for screening mammogram for malignant neoplasm of breast (principal)
CPT/HCPCS: G0202; 77067

== ENCOUNTER → 2018-06-05 | Outpatient (CLI) | payer MEDICARE, OTHER ==
[~2018-06-05] MED LIST changes: +LINA5TAB PO; -LINA5TAB4 PO; +METF500T16 PO; -METF500T4 PO
--- NOTE | 2018-06-07 08:01 | RAD ---
DATE: 06/05/2018 3:00 PM EXAM: MAMMO JAYSON SCREENING BILATERAL HISTORY: routine screening evaluation. COMPARISON: Prior mammographic imaging dating back to 03/01/2017 Bilateral CC and MLO views of the breasts were performed. Bilateral breast tomosynthesis was performed in CC and MLO projections. This study was interpreted with the benefit of Computerized Aided Detection (CAD ). Breast Density: The breast parenchyma FINDINGS: No suspicious masses, microcalcifications or architectural distortion is present to suggest malignancy in either breast. The visualized axillae are unremarkable. IMPRESSION: No mammographic evidence of malignancy. BI-RADS CATEGORY: 1 NEGATIVE RECOMMENDED FOLLOW-UP: 12M 12 MONTH FOLLOW-UP Annual screening mammography is recommended, unless clinically indicated sooner based on symptoms or change in physical exam. PQRS compliance statement: Patient information was entered into a reminder system with a target due date 06/07/2019 for the next mammogram. Mammography is a sensitive method for finding small breast cancers, but it does not detect them all and is not a substitute for careful clinical examination. A negative mammogram does not negate a clinically suspicious finding and should not result in delay in biopsying a clinically suspicious abnormality. "Our facility is accredited by the [employer] Mammography Program." ARMANDOD
== END | disposition home or self-care (01) ==
LOC: MAMMO 12:41
PROVIDERS: ATTEND Family Medicine
DX: Z12.31 Encounter for screening mammogram for malignant neoplasm of breast (principal)
CPT/HCPCS: 77063; 77067

== ENCOUNTER → 2018-06-21 | Outpatient (CLI) | payer MEDICARE, OTHER ==
--- NOTE | 2018-06-21 12:58 | RAD ---
Right upper quadrant ultrasound 06/21/2018 INDICATION: Abdominal pain. Elevated LFTs. COMPARISON STUDY: None available Discussion: Ultrasound evaluation of the right upper quadrant was performed. Static images are submitted to PACS. Pancreas is partially visualized. Visualized pancreas demonstrates no gross abnormality. Visualized aorta and IVC demonstrate no gross abnormality. The liver is diffusely echogenic suggesting hepatic steatosis. The liver is incompletely visualized. Portal vein is nonvisualized. No focal hepatic lesions are identified on provided imaging. The liver is normal in size measuring 15 cm longitudinally. The gallbladder appears to be normal in appearance without evidence of wall thickening, stones, or sludge. The common bile duct is nonvisualized. The right kidney is unremarkable in appearance measuring approximately 11 cm longitudinally. IMPRESSION: 1. Limited study without evidence of acute intra-abdominal abnormality 2. Probable hepatic steatosis Electronically signed by: Johnathon Jean Baptiste MD (06/21/2018 12:55 PM) [id number]
== END | disposition home or self-care (01) ==
LOC: US 11:26
PROVIDERS: ATTEND Family Medicine
DX: R10.9 Unspecified abdominal pain (principal); R94.5 Abnormal results of liver function studies
CPT/HCPCS: 76705

== ENCOUNTER → 2019-06-04 | Outpatient (CLI) | payer MEDICARE, OTHER ==
[~2019-06-04] MED LIST changes: +SIMV10TA15 PO; -SIMV10TA3 PO
--- NOTE | 2019-06-04 14:49 | KCIC ---
Bone Densitometry History: Postmenopausal female. Findings: Bone Densitometry was performed with dual photon absorption of the lumbar spine and left proximal femur. Lumbar Spine: Bone density is 1.390 g/cm2 for L1-L4. T-score is 3.1. Z-score is 5.1. Left total femur: Bone density is 0.975 g/cm2. T-score is 0.3. Z-score is 1.7. IMPRESSION: Bone mineral densities of the lumbar spine and left femur are normal. World Health Organization definition of osteoporosis and osteopenia for women: normal equals T score at or above -1.0 standard deviations; osteopenia equals T score between -1.0 and -2.5 standard deviations; osteoporosis equals T score at or below -2.5 standard deviations. Electronically signed by: Enrique Ferro MD (06/04/2019 2:45 PM) [id number]
--- NOTE | 2019-06-04 15:31 | KCIC ---
Bilateral digital screening mammograms with 3-D tomosynthesis: Reason for examination: Routine screening. Comparison is made to previous studies dated back to 01/19/2016. Bilateral mammograms in CC and oblique projections were obtained with 2-D imaging and 3-D tomosynthesis imaging on a Siemens Inspiration unit and reviewed on the workstation. Interpretation was made with the benefit of CAD. The skin and nipples show no abnormalities. No abnormal axillary lymph nodes are seen. The breast parenchyma shows scattered fatty and fibroglandular density. (Breast density: Category B.) There are no dominant masses, suspicious calcifications or architectural distortion. Impression: No evidence of malignancy. Recommend routine screening. BI-RAD Category 1: Negative. "Our facility is accredited by the [employer]amm[employer]." This patient's information has been entered into a reminder system for the patient to be notified with the results of her examination and a target date for the next mammogram. Electronically signed by: Yeny Ching MD (06/04/2019 3:28 PM) [email or web address]
== END ==
LOC: KCIC DEXA 10:52
PROVIDERS: ATTEND Family Medicine
DX: Z12.31 Encounter for screening mammogram for malignant neoplasm of breast (principal); N95.8 Other specified menopausal and perimenopausal disorders
CPT/HCPCS: 77063; 77067; 77080

== ENCOUNTER → 2020-06-10 | Outpatient (CLI) | payer MEDICARE, MEDICAID ==
[~2020-06-10] MED LIST changes: -ENAL5TAB PO; +ENAL5TAB12 PO
--- NOTE | 2020-06-10 11:28 | KCIC ---
Bilateral digital screening mammograms: Reason for examination: Routine screening. Comparison is made to previous studies dated back to 01/19/2016. Interpretation was made with the benefit of CAD. The skin and nipples show no abnormalities. No abnormal axillary lymph nodes are seen. The breast par enchyma shows scattered fibroglandular density. (Breast density: Category B.) There are no dominant m asses, suspicious calcifications or architectural distortions. Impression: No evidence of malignancy. Recommend routine screening. BI-RADS Category 1: Negative. "Our facility is accredited by the [employer]ammography [employer]." This patient's information has been entered into a reminder system for the patient to be notified wit h the results of her examination and a target date for the next mammogram. Electronically signed by: Yeny Ching MD (06/10/2020 11:25 AM) [email or web address]
== END ==
LOC: KCIC MAMMO 10:26
PROVIDERS: ATTEND Internal Medicine
DX: Z12.31 Encounter for screening mammogram for malignant neoplasm of breast (principal)
CPT/HCPCS: 77067

== ENCOUNTER → 2021-06-17 | Outpatient (CLI) | payer MEDICARE, MEDICAID ==
--- NOTE | 2021-06-17 15:37 | KCIC ---
Bilateral digital screening mammograms: Reason for examination: Routine screening. Comparison is made to previous studies dated back to 01/19/2016. Interpretation was made with the benefit of CAD. The skin and nipples show no abnormalities. No abnormal axillary lymph nodes are seen. The breast par enchyma shows scattered fibroglandular density. (Breast density: Category B.) There are no dominant m asses, suspicious calcifications or architectural distortions. Impression: No evidence of malignancy. Recommend routine screening. BI-RADS Category 1: Negative. "Our facility is accredited by the [employer] Mammography [employer]." This patient's information has been entered into a reminder system for the patient to be notified wit h the results of her examination and a target date for the next mammogram. Electronically signed by: Yeny Ching MD (06/17/2021 3:35 PM) [email or web address]
== END ==
LOC: KCIC MAMMO 12:30
PROVIDERS: ATTEND Internal Medicine
DX: Z12.31 Encounter for screening mammogram for malignant neoplasm of breast (principal)
CPT/HCPCS: 77067